=== PATIENT | male | born 1975 | race Caucasian/White ===

== ENCOUNTER 2020-04-25 09:02 | Emergency (ER) | payer OTHER, SELFPAY ==
--- NOTE | ~2020-04-25 | XR_ITS ---
EXAMINATION: XR foot RT min 3V DATE: 04/25/2020 09:18 INDICATION: Right foot injury and pain. TECHNIQUE: 4 views of right foot were obtained. COMPARISON: None. FINDINGS: Bone alignment is normal. There is an old healed fracture of head of fifth proximal phalanx with mild incongruence at the articular surface. There is a nondisplaced comminuted fracture base of fifth metatarsal. 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 There are enth esophytes at the posterior and plantar aspects of calcaneal tuberosity. IMPRESSION: 1. Acute comminuted fracture of base of fifth metatarsal. Reviewed, dictated and finalized at location A.
[2020-04-25 09:07] VITALS: BP 138/77; PULSE 74; RESP 16; TEMP 36.9; O2SAT 99
--- NOTE | 2020-04-25 09:16 | ED.EXTPRO ---
HPI - Extremity Problem General Chief complaint: Extremity Injury, Lower Stated complaint: right foot bruised/painful Time Seen by Provider: 04/25/20 09:16 Source: patient History of Present Illness HPI Narrative: patient presents with right foot pain, patient rolled his foot yesterday. Hurts to walk on his foot. Slight swelling, no deformity slight bruising no open areas noted. no numbness or tingling. warm to tough good pedal pulse. MD Complaint: extremity pain Onset (ago): day(s) Location: right and lower extremity Related Data Home Medications Medication Instructions Recorded Confirmed No Home Medications 04/25/20 04/25/20 Allergies Allergy/AdvReac Type Severity Reaction Status Date / Time No Known Allergies Allergy Verified 04/25/20 09:32 Review of Systems Review of Systems: Narrative: CONSTITUTIONAL: Denies fever, chills, or sweats. EYES: Denies visual changes, redness, or discharge. ENT: Denies rhinorrhea, congestion, sore throat, or otalgia. CARDIOVASCULAR: Denies chest pain, palpitations, or edema. RESPIRATORY: Denies cough or dyspnea. GASTROINTESTINAL: Denies abdominal pain, nausea, vomiting, or diarrhea. GENITOURINARY: Denies dysuria or hematuria. SKIN: Denies rash or itching. MUSCULOSKELETAL: Denies back pain, joint pain, or myalgia. right foot pain, swelling and bruising NEUROLOGIC: Denies headache, numbness, or weakness. PSYCHIATRIC: Denies anxiety or depression. ENT: Reports system reviewed and no additional complaints, except as documented PMFSH Comments At time of signature, agree with nursing past medical, surgical, social and family history. There is no relevant family history pertinent to the presenting complaint Exam Narrative: Exam Narrative: GENERAL: Well-appearing, well-nourished, and in no acute distress. HEAD: Normocephalic, atraumatic. EYES: PERRLA and EOMI. ENT: Nares clear, no rhinorrhea or epistaxis. Mucous membranes moist. NECK: Supple. CHEST: Clear to auscultation. No respiratory distress. HEART: Regular rate and rhythm. No murmur heard. Normal peripheral pulses. ABDOMEN: Soft, nontender, nondistended, normal active bowel sounds. EXTREMITIES: Normal range of motion. No edema. NORMAL DP PULSE, NORMAL CAP REFILL. NORMAL SENSATION. NVI. NO TENDERNESS TO FOOT SENSATION NVI NORMAL DORSALIS PEDIS PULSE. NORMAL MOVEMENT OF ALL TOES. NORMAL CAPILLARY REFILL. NORMAL SKIN COLOR. NO SKIN LESIONS SKIN TNTACT NO CALF PAIN NO CALF TENDERNESS NO CALF SWELLING NORMAL ROM OF KNEE.KIN INTACT. NORMAL DP PULSE, NORMAL CAP REFILL. NORMAL SENSATION. SKIN: Warm, dry, no rash. NEURO: No focal deficits. Alert and oriented x3. [place] Coma Scale Eye Opening: Spontaneous 4 [place] Coma Scale Motor: Obeys Commands 6 [place] Coma Scale Verbal: Oriented 5 [place] Coma Scale Total 15 Course Vital Signs Vital signs: Vital Signs Temperature 36.9 C 04/25/20 09:07 Pulse Rate 74 04/25/20 09:07 Respiratory Rate 16 04/25/20 09:07 Blood Pressure 138/77 04/25/20 09:07 Pulse Oximetry 99 04/25/20 09:07 Temperature 36.9 C 04/25/20 09:07 Pulse Rate 74 04/25/20 09:07 Respiratory Rate 16 04/25/20 09:07 Blood Pressure 138/77 04/25/20 09:07 Pulse Oximetry 99 04/25/20 09:07 Please KAVYA schedule a followup visit with your personal physician for further evaluation and treatment. Including recheck and discussion of your blood pressure. If your symptoms persist, change or worsen significantly before you can contact your personal physician then please, without delay, go to the emergency department for further evaluation MDM - Extremity (Nontraumatic) Differential Diagnosis Differential diagnosis: Likely gout, lower extremity edema and other (fracture, strain, sprain) Lab Data Labs: Patient has an acute comminuted fracture of base of fifth metatarsal per radiologist review of x-ray Critical Care Time Critical Care Time Critical Care Time: No Discharge Plan D
--- NOTE | 2020-04-25 09:19 | PC.NURSE ---
PT DECLINES WHEELCHAIR TO ROOM AND RADIOLOGY AND DECLINES ICE FOR COMFORT
== END 2020-04-25 09:48 | disposition home or self-care (01) ==
PROVIDERS: Emergency Provider Nurse Practitioner Family
DX: S92.351A Displaced fracture of fifth metatarsal bone, right foot, initial encounter for closed fracture (principal); X50.9XXA Other and unspecified overexertion or strenuous movements or postures, initial encounter; X50.0XXA Overexertion from strenuous movement or load, initial encounter
CPT/HCPCS: 73630; 99214; G0463